=== PATIENT | female | born 1950 | race Caucasian/White ===

== ENCOUNTER 2019-12-02 11:26 | Emergency (ER) | payer MEDICARE ==
[~2019-12-02] VITALS: Ht 149.9 cm; Wt 74.8 kg
[~2019-12-02 11:26] MED LIST: ASPIRIN325 PO; HYDROCODON-ACE1 EAC7 PO; HYDROCODONE-AP1 EAC6 PO; LIPITOR 20 MG T20 M1 PO; LISINOPRIL10 MG PO; METFORMIN HCL500 MG PO; MOBIC15 MG PO; OXYCODONE HCL 55 MG PO; XARELTO10 MG PO
[2019-12-02] MEDS ORDERED: ASA81BEC PO (11:32)
[2019-12-02] MEDS ORDERED: VITAMIN D-40010 MCG PO (11:33)
[2019-12-02] MEDS ORDERED: GLIPIZIDE 10 MG10 MG PO (11:34)
[2019-12-02 12:20] LABS: ABSOLUTE EOSINOPHILS 0.1 thou/uL (0.0-0.7); ABSOLUTE LYMPHOCYTES 1.2 thou/uL (0.8-5.3); ABSOLUTE MONOCYTES 0.3 thou/uL (0.0-1.2); ABSOLUTE NEUTROPHILS 4.8 thou/uL (1.6-8.1); BASOPHILS 0.3 %; EOSINOPHILS 1.9 %; HEMATOCRIT 45.1 % (37.0-47.0); HEMOGLOBIN 14.8 gm/dL (12.0-15.0); LYMPHOCYTES 17.9 %; MCHC 32.7 g/dL (28.0-37.0); MCV 79.3 fL (80.0-100.0); MONOCYTES 4.9 %; MPV 8.7 fl. (7.2-11.1); NUCLEATED RBCS 0 /100WBC; PLATELET COUNT* 299 thou/uL (150-400); RBC 5.68 mil/uL (4.20-5.00); RDW-CV 18.2 % (10.5-14.5); WBC 6.5 thou/uL (4.0-11.0)
[2019-12-02 12:30] LABS: CALCIUM 8.9 mg/dL (8.5-10.1); CREATININE 0.7 mg/dL (0.6-1.3); POTASSIUM 3.4 mmol/L (3.5-5.1)
[2019-12-02 12:34] LABS: ALBUMIN 3.4 g/dL (3.4-5.0); TOTAL BILIRUBIN 0.4 mg/dL (<0.1-1.0); TOTAL PROTEIN 7.3 g/dL (6.4-8.2)
[2019-12-02] MEDS ORDERED: PREDNISONE 20 M20 M1 PO (13:04)
[2019-12-02 13:11] VITALS: BP 111/49
--- NOTE | 2019-12-02 16:08 | EKG ---
[place] [address] ELECTROCARDIOGRAM REPORT Name: ALFA VELASCO [facility]: [facility]ANRodney#: [id number] Admission: 12/02/19 Attend Phys: Discharge: 12/02/19 Date of : 50 Date of Service: 12/02/19 1137 Report #: [id number] THIS REPORT FOR: //name// [facility] ED Test Date: 2019-12-02 Test Time: 11:37:14 Pat Name: ALFA VELASCO Department: Room: Gender: [employer] Member: : 1950 Requested By: Andrew Rivas Order Number: [id number] MD: Tripp Jacobs Measurements Intervals [place] Rate: 98 P: 50 ND: 131 QRS: 21 QRSD: 102 T: 69 QT: 382 QTc: 488 Interpretive Statements Sinus rhythm Abnormal inferior Q waves Borderline prolonged QT interval Electronically Signed On 12-02-2019 16:08:20 CDT by Tripp Jacobs [email or web address] <ELECTRONICALLY SIGNED> By: Tripp Jacobs MD, [facility] 12/02/19 1608 D: 07/1136 36 Tripp Jacobs MD, FACC /EPI
== END 2019-12-02 13:12 | disposition home or self-care (01) ==
LOC: M.ERS 11:26
PROVIDERS: Family Medicine
DX: L53.9 Erythematous condition, unspecified (principal); T36.0X5A Adverse effect of penicillins, initial encounter; E11.9 Type 2 diabetes mellitus without complications; E78.5 Hyperlipidemia, unspecified; Z90.49 Acquired absence of other specified parts of digestive tract; Z90.710 Acquired absence of both cervix and uterus; F17.210 Nicotine dependence, cigarettes, uncomplicated; Z88.1 Allergy status to other antibiotic agents; Y92.89 Other specified places as the place of occurrence of the external cause